=== PATIENT | female | born 1975 | race Caucasian/White ===

== ENCOUNTER → 2016-05-02 | Outpatient (CLI) | payer MEDICAID ==
[~2016-05-02] MED LIST: AURALGAN O10 ML/BOTT OT; CETIRIZINE HYDR10 MG PO; CORTISPORIN (GE10 M1 OT; GABAPENTIN300 M1 PO; TOPIRAMATE100 MG PO
[2016-05-02 18:25] LABS: BUN 8 mg/dL (7-18)
[2016-05-02 18:26] LABS: GFR (ESTIMATED) 80 ML/MIN (59-)
== END ==
LOC: LAB 17:47
PROVIDERS: Emergency Medicine
DX: E07.9 Disorder of thyroid, unspecified (principal)

== ENCOUNTER → 2017-03-08 | Outpatient (CLI) | payer MEDICAID ==
[~2017-03-08] MED LIST changes: +KEFLEX 500MG.500 MG PO
[2017-03-08 14:20] LABS: HEMOGLOBIN 14.5 g/dL (12.2-16.2); LYMPH # 2.8 K/mm3 (0.7-4.5); LYMPH % 37.9 % (10-50.0)
[2017-03-08 14:42] LABS: BUN 7 mg/dL (7-18)
[2017-03-08 15:18] LABS: GFR (ESTIMATED) 69 ML/MIN (59-)
[2017-03-09 09:37] LABS: Folate (Folic Acid) 14.7 ng/mL (>3.0)
[2017-03-10 06:37] LABS: Vitamin D, 25-Hydroxy 35.3 ng/mL (30.0-100.0)
== END ==
LOC: LAB 13:40
PROVIDERS: Physician Assistant
DX: G25.2 Other specified forms of tremor (principal)